=== PATIENT | female | born 1965 | race Caucasian/White ===

== ENCOUNTER 2019-04-30 02:43 | Emergency (ER) | payer OTHER ==
[2019-04-30 03:05] LABS: Bilirubin Negative (Negative); Blood, Urine Trace (Negative); Clarity Clear (Clear); Glucose, Urine (Dipstick) Negative (Negative); Leukocyte Small (Negative); Nitrite Negative (Negative); Protein, Urine (Dipstick) Negative (Neg-Trace); Urobilinogen 0.2 mg/dL (Less than 2)
[2019-04-30 03:17] LABS: Bacteria/HPF 1+ HPF (None Seen); Mucous/LPF 1+ LPF (<2+); RBC/HPF 0-3 HPF (0-3); Squamous Epithelial 0-3 HPF (0-3); Trichomonas/HPF 1+ HPF (None Seen)
[2019-04-30 03:26] LABS: #Basophils 0.1 thou/uL (0.0-0.2); #Eosinphils 0.2 thou/uL (0.0-0.7); #Monocytes 1.2 thou/uL (0.11-0.59); #Neutrophils 13.8 thou/uL (1.40-6.50); %Basophils 0.6 % (0.0-1.0); %Eosinophils 0.9 % (0.0-10.0); %Lymphocytes 16.3 % (21.0-51.0); %Monocytes 6.5 % (0.0-10.0); %Neutrophils 75.7 % (42.0-75.0); Mean Corpuscular HGB CONC 31.2 g/dL (32.0-36.0); Mean Corpuscular Hemoglobin 28.6 pg (27.0-31.0); Mean Corpuscular Volume 91.7 fL (78.0-98.0); Mean Platelet Volume 6.4 fL (7.4-10.4); Platelet Count 432 thou/uL (130-400); RBC Distribution Width 12.2 % (11.5-14.5); Red Blood Cell (RBC) Count 4.19 mill/uL (4.20-5.40); White Blood Cell (WBC) Count 18.3 thou/uL (4.8-10.8)
[2019-04-30 03:29] LABS: Pregnancy Test - Urine (BHCG) Negative (Negative); Pregu Control Background? CLEAR/WHITE (CLR/WHITE); Pregu Control Bar Appear? YES (CONTROL BAR); Specific Gravity 1.015 (1.002-1.036)
[2019-04-30 03:46] LABS: ALT (SGPT) 14 U/L (8-55); AST (SGOT) 18 U/L (5-34); Albumin 4.1 g/dL (3.5-5.0); Alkaline Phosphatase 74 U/L (40-110); Anion Gap 15 mmol/L (10-20); BUN (Urea Nitrogen) 19 mg/dL (9.8-20.1); Bilirubin, Total 0.5 mg/dL (0.2-1.2); Calc. Creatinine Clearance 0 mL/min (70-130); Calcium 9.3 mg/dL (7.8-10.44); Carbon Dioxide 20 mmol/L (22-29); Chloride 105 mmol/L (98-107); Estimated GFR-MDRD 37; Globulin 3.8 g/dL (2.4-3.5); Glucose 124 mg/dL (70-105); Lipase 17 U/L (8-78); Potassium 4.1 mmol/L (3.5-5.1); Protein, Total 7.9 g/dL (6.0-8.3); Sodium 136 mmol/L (136-145)
[2019-04-30] MEDS ORDERED: Ketorolac Tromethamine 30 MG/ML VIAL ONE (03:58)
[2019-04-30] MEDS ORDERED: Sodium Chloride 0.9% 1,000 ML ONE (03:58)
--- NOTE | 2019-04-30 07:53 | CT ---
PRELIMINARY REPORT/[facility]/EMERGENCY AFTER HOURS PROCEDURE: Receipt of this report by the clinical staff was confirmed with Kacey Holland by Marylou Xavier on 2019 03:47:00 [facility]. Addendum electronically signed by Marylou Xavier on April 30, 2019 3:48:00 AM [facility] EXAM: CT Abdomen and Pelvis Without Intravenous Contrast CLINICAL HISTORY: LT FLANK PAIN. HX OF STONES TECHNIQUE: Axial computed tomography images of the abdomen and pelvis without intravenous contrast. Coronal and sagittal reformatted images are provided. Exam DLP [id number]. CONTRAST: None. COMPARISON: None provided. FINDINGS: LUNG BASES: Bibasilar dependent atelectasis. The heart is normal size. No effusion. LIVER: Unremarkable. GALLBLADDER AND BILE DUCTS: Unremarkable. No calcified stone. No ductal dilation. PANCREAS: Unremarkable. SPLEEN: Unremarkable. ADRENAL GLANDS: Unremarkable. KIDNEYS, URETERS, AND BLADDER: Multiple bilateral renal stones, measuring up to 4 mm on the right and 8 mm on the left. There is a 5 mm obstructing stone within the proximal left ureter resulting in mild left hydronephrosis. No additional stones. No stones within the urinary bladder. STOMACH AND BOWEL: Small hiatal hernia. No evidence of bowel obstruction. No evidence of diverticu litis. APPENDIX: No CT evidence for appendicitis. PERITONEUM: No free fluid. No free air. LYMPH NODES: No lymphadenopathy. REPRODUCTIVE: Enlarged, globular appearance of the uterus with prominent endometrium. VASCULATURE: No aortic aneurysm. ABDOMINAL WALL AND SOFT TISSUES: Unremarkable. BONES: No fracture or suspicious osseous abnormality. IMPRESSION: 1. 5 mm obstructing stone within the left ureter. 2. Bilateral nephrolithiasis. 3. Enlarged uterus with prominent endometrium. Correlate for symptoms and menopausal status and if po stmenopausal or symptomatic, consider gynecology consultation. ELECTRONICALLY SIGNED BY: Martir Gross M.D. Apr 30, 2019 3:44:23 AM [facility] FINAL REPORT: CT ABDOMEN AND PELVIS WITHOUT CONTRAST: PROVIDED CLINICAL HISTORY: Left flank pain. COMPARISON: None. FINDINGS/IMPRESSION: Agree with the preliminary interpretation given by [facility]. Transcribed Date/Time: 04/30/2019 8:10 AM
== END 2019-04-30 04:56 | disposition short-term general hospital (02) ==
LOC: MADERS 02:43
DX: N13.6 Pyonephrosis (principal); E03.9 Hypothyroidism, unspecified; I10 Essential (primary) hypertension; Z79.899 Other long term (current) drug therapy; Z87.442 Personal history of urinary calculi
CPT/HCPCS: 74176; 80053; 81003; 81015; 81025; 83690; 85025; 87040; 87086; 96361; 96365; 96375; J1885; J1956; J7050

== ENCOUNTER 2019-10-19 09:58 | Outpatient (CLI) | payer OTHER ==
--- NOTE | 2019-10-19 10:45 | ULT ---
Right upper quadrant ultrasound: 10/19/2019 HISTORY: Right upper quadrant pain for years TECHNIQUE: Multiplanar grayscale sonographic imaging of the right upper quadrant obtained. FINDINGS: Visualized abdominal aorta and pancreas appear grossly unremarkable, both of which are part ially obscured by bowel gas. No focal liver lesion or intrahepatic biliary dilatation is seen. The instructional interventionist reports a positive Blair's sign, etiology uncertain. The common bile duct is normal in caliber, measuring 2 mm. No gallbladder wall thickening, gallstones, or pericholecystic fluid is seen. The right kidney measures 11.2 cm in craniocaudal dimension and demonstrates no stone, hydronephrosis , or mass lesion. IMPRESSION: No sonographic evidence of cholecystitis or cholelithiasis.
== END 2019-10-19 09:59 | disposition home or self-care (01) ==
LOC: MADRAD 09:58
PROVIDERS: ATTEND Family Medicine
DX: R10.11 Right upper quadrant pain (principal)
CPT/HCPCS: 76705

== ENCOUNTER 2020-11-20 22:32 | Emergency (ER) | payer OTHER ==
[2020-11-21 00:25] LABS: #Basophils 0.1 thou/uL (0.0-0.2); #Eosinphils 0.3 thou/uL (0.0-0.7); #Lymphocytes 2.6 thou/uL (1.20-3.40); #Monocytes 0.8 thou/uL (0.11-0.59); #Neutrophils 6.5 thou/uL (1.40-6.50); %Basophils 1.1 % (0.0-1.0); %Eosinophils 2.6 % (0.0-10.0); %Lymphocytes 25.1 % (21.0-51.0); %Monocytes 7.8 % (0.0-10.0); %Neutrophils 63.5 % (42.0-75.0); Hemoglobin 13.9 g/dL (12.0-16.0); Mean Corpuscular HGB CONC 30.7 g/dL (32.0-36.0); Mean Corpuscular Hemoglobin 29.4 pg (27.0-31.0); Platelet Count 290 thou/uL (130-400); RBC Distribution Width 14.6 % (11.5-14.5); Red Blood Cell (RBC) Count 4.71 mill/uL (4.20-5.40); White Blood Cell (WBC) Count 10.2 thou/uL (4.8-10.8)
[2020-11-21] MEDS ORDERED: Morphine 4 MG/ML VIAL ONE (00:31)
[2020-11-21] MEDS ORDERED: Ondansetron PF 4 MG/2 ML Vial ONE (00:31)
[2020-11-21 00:40] LABS: ALT (SGPT) 439 U/L (8-55); AST (SGOT) 226 U/L (5-34); Albumin 4.1 g/dL (3.5-5.0); Alkaline Phosphatase 301 U/L (40-110); Anion Gap 17 mmol/L (10-20); BUN (Urea Nitrogen) 20 mg/dL (9.8-20.1); Calc. Creatinine Clearance 0 mL/min (70-130); Calcium 9.9 mg/dL (7.8-10.44); Carbon Dioxide 20 mmol/L (22-29); Chloride 105 mmol/L (98-107); Glucose 114 mg/dL (70-105); Lipase 35 U/L (8-78); Potassium 3.7 mmol/L (3.5-5.1); Protein, Total 8.1 g/dL (6.0-8.3); Sodium 138 mmol/L (136-145)
[2020-11-21] MEDS ORDERED: Ketorolac Tromethamine 30 MG/ML VIAL ONE (04:17)
[2020-11-21] MEDS ORDERED: Sodium Chloride 0.9% 1,000 ML ONE (04:17)
[2020-11-21] MEDS ORDERED: Aspirin Chewable 81 MG TAB ONE (04:17)
== END 2020-11-21 04:26 | disposition short-term general hospital (02) ==
LOC: MADERS 22:32
DX: E80.7 Disorder of bilirubin metabolism, unspecified (principal); R94.31 Abnormal electrocardiogram [ECG] [EKG]; R74.01 Elevation of levels of liver transaminase levels; E03.9 Hypothyroidism, unspecified; G62.9 Polyneuropathy, unspecified; K21.9 Gastro-esophageal reflux disease without esophagitis; I10 Essential (primary) hypertension; Z87.442 Personal history of urinary calculi; Z85.830 Personal history of malignant neoplasm of bone; Z79.899 Other long term (current) drug therapy; Z79.1 Long term (current) use of non-steroidal anti-inflammatories (NSAID)
CPT/HCPCS: 36415; 74176; 80053; 83605; 83690; 84484; 85025; 93005; 96374; J1885; J2270; J2405; J7050

== ENCOUNTER 2020-12-18 13:54 | Emergency (ER) | payer OTHER ==
[~2020-12-18 13:54] MED LIST: Iopamidol 370 76% 100 ML VIAL ONE; Sodium Chloride 0.9% 1,000 ML BAG ONE
[2020-12-18] MEDS ORDERED: Ondansetron PF 4 MG/2 ML Vial ONE (14:27)
[2020-12-18 14:35] LABS: #Basophils 0.1 thou/uL (0.0-0.2); #Eosinphils 0.1 thou/uL (0.0-0.7); #Lymphocytes 2.3 thou/uL (1.20-3.40); #Neutrophils 11.8 thou/uL (1.40-6.50); %Basophils 0.8 % (0.0-1.0); %Eosinophils 0.9 % (0.0-10.0); %Lymphocytes 15.2 % (21.0-51.0); %Monocytes 6.3 % (0.0-10.0); %Neutrophils 76.9 % (42.0-75.0); Hemoglobin 11.2 g/dL (12.0-16.0); Mean Corpuscular Volume 93.4 fL (78.0-98.0); Mean Platelet Volume 6.5 fL (7.4-10.4); Platelet Count 461 thou/uL (130-400); RBC Distribution Width 15.4 % (11.5-14.5); Red Blood Cell (RBC) Count 3.88 mill/uL (4.20-5.40); White Blood Cell (WBC) Count 15.3 thou/uL (4.8-10.8)
[2020-12-18 14:51] LABS: ALT (SGPT) 11 U/L (8-55); AST (SGOT) 25 U/L (5-34); Alkaline Phosphatase 93 U/L (40-110); Anion Gap 15 mmol/L (10-20); BUN (Urea Nitrogen) 10 mg/dL (9.8-20.1); Bilirubin, Total 0.8 mg/dL (0.2-1.2); Calc. Creatinine Clearance 0 mL/min (70-130); Calcium 9.1 mg/dL (7.8-10.44); Carbon Dioxide 22 mmol/L (22-29); Chloride 107 mmol/L (98-107); Globulin 4.6 g/dL (2.4-3.5); Glucose 103 mg/dL (70-105); Lipase 185 U/L (8-78); Magnesium 1.6 mg/dL (1.6-2.6); Potassium 3.1 mmol/L (3.5-5.1); Protein, Total 7.6 g/dL (6.0-8.3); Sodium 141 mmol/L (136-145)
[2020-12-18] MEDS ORDERED: Potassium Chloride 20 MEQ TAB ONE (18:07)
[2020-12-18] MEDS ORDERED: Promethazine HCl 25 MG/ML VIAL ONE (20:35)
[2020-12-18 20:45] LABS: SARS-CoV-2 NAA Rapid Test Not Detected (NotDetected)
== END 2020-12-18 21:50 | disposition short-term general hospital (02) ==
LOC: MADERS 13:54
DX: K91.89 Other postprocedural complications and disorders of digestive system (principal); K85.90 Acute pancreatitis without necrosis or infection, unspecified; E03.9 Hypothyroidism, unspecified; K21.9 Gastro-esophageal reflux disease without esophagitis; I10 Essential (primary) hypertension; Z79.899 Other long term (current) drug therapy
CPT/HCPCS: 74177; 80053; 83690; 83735; 85025; 96374; 96375; J2405; J2550; J7050; Q9967; U0002

== ENCOUNTER 2021-04-06 16:03 | Emergency (ER) | payer OTHER ==
[~2021-04-06 16:03] MED LIST changes: -Sodium Chloride 0.9% 1,000 ML BAG ONE
[2021-04-06] MEDS ORDERED: Morphine 4 MG/ML VIAL ONE (16:47)
[2021-04-06] MEDS ORDERED: Prochlorperazine 10 MG/2 ML VIAL ONE (16:48)
[2021-04-06] MEDS ORDERED: Sodium Chloride 0.9% 1,000 ML ONE (16:48)
[2021-04-06 16:53] LABS: #Basophils 0.2 thou/uL (0.0-0.2); #Eosinphils 0.2 thou/uL (0.0-0.7); #Lymphocytes 2.9 thou/uL (1.20-3.40); #Neutrophils 12.4 thou/uL (1.40-6.50); %Basophils 1.1 % (0.0-1.0); %Eosinophils 1.2 % (0.0-10.0); %Lymphocytes 17.5 % (21.0-51.0); %Monocytes 5.8 % (0.0-10.0); %Neutrophils 74.4 % (42.0-75.0); Mean Corpuscular HGB CONC 31.5 g/dL (32.0-36.0); Mean Corpuscular Hemoglobin 28.4 pg (27.0-31.0); Mean Corpuscular Volume 90.3 fL (78.0-98.0); Mean Platelet Volume 6.5 fL (7.4-10.4); Platelet Count 533 thou/uL (130-400); RBC Distribution Width 14.8 % (11.5-14.5); Red Blood Cell (RBC) Count 4.22 mill/uL (4.20-5.40); White Blood Cell (WBC) Count 16.7 thou/uL (4.8-10.8)
[2021-04-06 17:08] LABS: ALT (SGPT) 7 U/L (8-55); AST (SGOT) 18 U/L (5-34); Albumin 3.4 g/dL (3.5-5.0); Alkaline Phosphatase 142 U/L (40-110); Anion Gap 18 mmol/L (10-20); BUN (Urea Nitrogen) 11 mg/dL (9.8-20.1); Bilirubin, Total 0.7 mg/dL (0.2-1.2); Calc. Creatinine Clearance 0 mL/min (70-130); Calcium 9.2 mg/dL (7.8-10.44); Carbon Dioxide 19 mmol/L (22-29); Chloride 105 mmol/L (98-107); Globulin 4.9 g/dL (2.4-3.5); Glucose 112 mg/dL (70-105); Lipase 17 U/L (8-78); Potassium 3.9 mmol/L (3.5-5.1); Protein, Total 8.3 g/dL (6.0-8.3); Sodium 138 mmol/L (136-145)
[2021-04-06 18:32] LABS: SARS-CoV-2 NAA Rapid Test Not Detected (NotDetected)
== END 2021-04-06 20:00 | disposition short-term general hospital (02) ==
LOC: MADERS 16:03
DX: A41.9 Sepsis, unspecified organism (principal); K81.0 Acute cholecystitis; R11.2 Nausea with vomiting, unspecified; I10 Essential (primary) hypertension; E03.9 Hypothyroidism, unspecified; K21.9 Gastro-esophageal reflux disease without esophagitis; G62.9 Polyneuropathy, unspecified; Z20.822 Contact with and (suspected) exposure to COVID-19; Z87.442 Personal history of urinary calculi; Z87.19 Personal history of other diseases of the digestive system
CPT/HCPCS: 74177; 80053; 83605; 83690; 85025; 87040; 96365; 96366; 96368; 96375; J0780; J1956; J2270; J3370; J7050; Q9967; U0002